=== PATIENT | female | born 1990 ===

== ENCOUNTER 2025-02-09 16:28 | Outpatient (CLI) | payer OTHER ==
[~2025-02-09] VITALS: Ht 167.6 cm; Wt 73.5 kg
[2025-02-09 16:55] VITALS: BP 123/54; BP 123/84
[2025-02-09 17:41] LABS: BASO % 0.3 % (0.1-1.2); EOS # 0.06 (0.04-0.54); EOS % 0.5 % (0.7-7.0); HEMATOCRIT 38.9 % (34.1-44.9); HEMOGLOBIN 13.3 g/dL (11.2-15.7); LYMPH # 1.95 (1.18-3.74); MEAN CORPUSCULAR HEMOGLOBIN 31.4 pg (25.6-32.2); MONO # 0.72 (0.24-0.82); MONO % 5.9 % (4.7-12.5); NEUT # 9.28 (1.56-6.13); NEUT % 76.1 % (34.0-71.1); PLATELET COUNT 295 K/uL (163-369); RED BLOOD COUNT 4.23 M/uL (3.93-5.22); RED CELL DISTRIBUTION WIDTH 12.7 % (11.6-14.4)
[2025-02-09 17:42] LABS: PH,URINE 6.5 (5.0-8.0); URINE APPEARANCE Clear; URINE BILIRRUBIN Negative (NEGATIVE); URINE BLOOD Negative; URINE COLOR Yellow; URINE GLUCOSE Negative (NEGATIVE); URINE KETONE Negative (NEGATIVE); URINE LEUKOCYTE Negative; URINE NITRATE Negative; URINE PROTEIN Negative (NEGATIVE); URINE UROBILINOGEN 0.2 E.U./dl
[2025-02-09] MEDS ORDERED: RINGERS SOLUTION,LACTATED 1,000 ML IV SCH (17:45)
[2025-02-09 17:46] LABS: URINE BACTERIA 111.3 uL (0.0-1933); URINE EPITHELIAL CELLS 31.3 uL (0.0-38.8); URINE RBC 2.2 uL (0.0-20.8); URINE WBC 7.2 uL (0.0-23.2)
[2025-02-09 18:03] LABS: INR 0.94; PARTIAL THROMBOPLASTIN TIME 24.9 SECONDS (22.0-34.0); PROTHROMBIN TIME 10.3 SECONDS (9.0-11.5)
[2025-02-09 18:08] LABS: BILIRUBIN TOTAL 0.23 mg/dL (0.3-1.2); CALCIUM 9.2 mg/dL (8.5-10.1); CREATININE SERUM 0.87 mg/dL (0.55-1.02); GFR 73.67; GLOBULINA 3.8 G/DL (2.4-3.5); POTASSIUM 4.05 mEq/L (3.5-5.1); TOTAL PROTEIN 6.8 gm/dL (6.4-8.2)
[2025-02-09 19:46] VITALS: BP 105/67
[2025-02-09 23:14] VITALS: BP 99/61
[2025-02-10 04:01] VITALS: BP 106/63
[2025-02-10 06:24] VITALS: BP 103/68; O2SAT 99
[2025-02-10 11:44] VITALS: BP 104/72
[2025-02-10 14:45] VITALS: BP 107/72
[2025-02-10 18:52] LABS: URINE PROT QUANT 24HR 5.1 MG/DL
[2025-02-10 19:06] LABS: URINE PROT QUANT 24 HR 219.3 MG/24HR (42-225)
[2025-02-10 19:49] VITALS: BP 121/79
[2025-02-11 07:46] LABS: CREATINE CLEARANCE 111.4 ML/MIN (97-137); CREATININE SERUM 0.87 mg/dL (0.6-1.0)
== END 2025-02-10 19:49 | disposition home or self-care (01) ==
LOC: OBS/DEL 16:28
PROVIDERS: ATTEND Specialist
DX: O26.892 Other specified pregnancy related conditions, second trimester (principal); O26.849 Uterine size-date discrepancy, unspecified trimester; O13.9 Gestational [pregnancy-induced] hypertension without significant proteinuria, unspecified trimester; O14.90 Unspecified pre-eclampsia, unspecified trimester; O60.00 Preterm labor without delivery, unspecified trimester; O36.8199 Decreased fetal movements, unspecified trimester, other fetus; Z3A.27 27 weeks gestation of pregnancy

== ENCOUNTER 2025-05-09 06:25 | Inpatient (IN) | payer OTHER ==
[~2025-05-09] VITALS: Ht 165.1 cm; Wt 2.7 kg
[2025-05-09 05:36] VITALS: BP 102/82
[2025-05-09] MEDS ORDERED: RINGERS SOLUTION,LACTATED 1,000 ML IV SCH (06:45)
[2025-05-09] MEDS ORDERED: PRENATA CHEWAB1 EACH PO (07:12)
[2025-05-09] MEDS ORDERED: ZYRTEC10 M3 PO (07:13)
[2025-05-09] MEDS ORDERED: ADULT LOW DOSE81 M1 (07:13)
[2025-05-09] MEDS ORDERED: SINGULAIR4 M1 PO (07:14)
[2025-05-09 07:17] LABS: URINE APPEARANCE Clear; URINE BILIRRUBIN Negative (NEGATIVE); URINE BLOOD Negative; URINE COLOR Yellow; URINE GLUCOSE Negative (NEGATIVE); URINE KETONE Negative (NEGATIVE); URINE LEUKOCYTE Trace; URINE NITRATE Negative; URINE PROTEIN Negative (NEGATIVE); URINE UROBILINOGEN 0.2 E.U./dl
[2025-05-09 07:19] LABS: URINE BACTERIA 77.8 uL (0.0-1933); URINE EPITHELIAL CELLS 59.0 uL (0.0-38.8); URINE WBC 17.2 uL (0.0-23.2)
[2025-05-09 07:31] LABS: URINE CAST 0.14 uL (0.0-1.40); URINE RBC 0.8 uL (0.0-20.8)
[2025-05-09 07:35] VITALS: BP 104/66
[2025-05-09 07:47] LABS: ALT/SGPT 35.0 U/L (12-78); AST/SGOT 25.0 U/L (15-37); BILIRUBIN TOTAL 0.36 mg/dL (0.3-1.2); BUN CREA RATIO 17.0 (7.0-25.0); CREATININE SERUM 0.69 mg/dL (0.55-1.02); GFR 96.27; GLOBULINA 3.7 G/DL (2.4-3.5); GLUCOSE FASTING 75.0 mg/dL (65-100); OSMOLALITY SERUM 283.0 MOSM/KG (275-295)
[2025-05-09 07:51] LABS: BASO % 0.2 % (0.1-1.2); EOS # 0.14 (0.04-0.54); EOS % 1.7 % (0.7-7.0); LYMPH # 1.92 (1.18-3.74); LYMPH % 23.1 % (19.3-53.1); MEAN PLATELET VOLUME 10.80 fl (9.4-12.4); MONO # 0.66 (0.24-0.82); MONO % 7.9 % (4.7-12.5); NEUT # 5.53 (1.56-6.13); NEUT % 66.6 % (34.0-71.1); RED CELL DISTRIBUTION WIDTH 13.2 % (11.6-14.4)
[2025-05-09 07:53] LABS: INR < 0.93
[2025-05-09] MEDS ORDERED: MISOPROSTOL 25 MCG/4 ML GEL.W.APPL VAG ONE ×2 (09:15→13:15)
[2025-05-09 11:13] VITALS: BP 116/76
[2025-05-09 15:15] VITALS: BP 117/75
[2025-05-09] MEDS ORDERED: OXYTOCIN 500 ML IV SCH (17:45)
[2025-05-09] MEDS ORDERED: MORPHINE SULFATE 4 MG/ML VIAL IV ONE (19:30)
[2025-05-09 19:35] VITALS: BP 118/78
[2025-05-09] MEDS ORDERED: ONDANSETRON HCL 2 MG/ML VIAL IV ONE (20:45)
[2025-05-09] MEDS ORDERED: DEXTROSE 5%-LACTATED RINGERS 1,000 ML IV SCH (22:30)
[2025-05-09 23:30] VITALS: BP 117/72
[2025-05-10] MEDS ORDERED: MORPHINE SULFATE 4 MG/ML CARTRIDGE IV SCH (03:00)
[2025-05-10] MEDS ORDERED: ERYTHROMYCIN BASE OPHT 1GM EACH TUBE OP ONE (03:00)
[2025-05-10] MEDS ORDERED: OXYTOCIN 10 UNITS/ML VIAL IV ONE (03:00)
[2025-05-10] MEDS ORDERED: CEFAZOLIN SODIUM 1,000 MG VIAL IV ONE (03:00)
[2025-05-10] MEDS ORDERED: KETOROLAC TROMETHAMINE 60 MG VIAL IM ONE (03:00)
[2025-05-10] MEDS ORDERED: MORPHINE SULFATE 4 MG/ML VIAL IV ONE ×2 (03:10→03:40)
[2025-05-10 05:41] VITALS: BP 113/74
[2025-05-10] MEDS ORDERED: OxyCODONE HCL 5 MG TABLET (ROXICODONE) PO SCH (07:00)
[2025-05-10] MEDS ORDERED: ACETAMINOPHEN 325 MG TABLET PO SCH (07:00)
[2025-05-10 07:46] LABS: BASO % 0.1 % (0.1-1.2); EOS # 0.00 (0.04-0.54); EOS % 0.0 % (0.7-7.0); LYMPH # 1.15 (1.18-3.74); LYMPH % 7.2 % (19.3-53.1); MEAN PLATELET VOLUME 10.90 fl (9.4-12.4); MONO # 1.06 (0.24-0.82); MONO % 6.7 % (4.7-12.5); NEUT # 13.56 (1.56-6.13); NEUT % 85.5 % (34.0-71.1); RED CELL DISTRIBUTION WIDTH 13.2 % (11.6-14.4)
[2025-05-10 08:50] VITALS: BP 121/78
[2025-05-10] MEDS ORDERED: DOCUSATE SODIUM 100MG CAP PO SCH (09:00)
[2025-05-10] MEDS ORDERED: SIMETHICONE 125 MG CAPSULE PO SCH (09:00)
[2025-05-10 16:58] VITALS: BP 119/75
[2025-05-11] VITALS: BP 108/68
[2025-05-11 09:20] VITALS: BP 118/77
[2025-05-11 12:00] LABS: BASO % 0.2 % (0.1-1.2); EOS # 0.01 (0.04-0.54); EOS % 0.1 % (0.7-7.0); LYMPH # 1.69 (1.18-3.74); LYMPH % 12.8 % (19.3-53.1); MEAN PLATELET VOLUME 10.30 fl (9.4-12.4); MONO # 1.03 (0.24-0.82); MONO % 7.8 % (4.7-12.5); NEUT # 10.35 (1.56-6.13); NEUT % 78.6 % (34.0-71.1); RED CELL DISTRIBUTION WIDTH 13.5 % (11.6-14.4)
[2025-05-11 17:54] VITALS: BP 119/78
[2025-05-12 00:53] VITALS: BP 112/77
[2025-05-12 08:00] VITALS: BP 120/81
== END 2025-05-12 13:00 | disposition home or self-care (01) | DRG 788 ==
LOC: LDR 06:25 → OB/GYN 06:25
PROVIDERS: Obstetrics & Gynecology; ADMIT Specialist; ATTEND Specialist
PROC: 3E0P7VZ Introduction of Hormone into Female Reproductive, Via Natural or Artificial Opening (ICD-10-PCS; 2025-05-09)
PROC: 4A1HXCZ Monitoring of Products of Conception, Cardiac Rate, External Approach (ICD-10-PCS; 2025-05-09)
PROC: 3E033VJ Introduction of Other Hormone into Peripheral Vein, Percutaneous Approach (ICD-10-PCS; 2025-05-10)
PROC: 10D00Z1 Extraction of Products of Conception, Low, Open Approach (ICD-10-PCS; principal; 2025-05-10 09:45)
DX: O82 Encounter for cesarean delivery without indication (principal); O62.1 Secondary uterine inertia; O67.8 Other intrapartum hemorrhage; Z3A.38 38 weeks gestation of pregnancy; Z37.0 Single live birth